=== PATIENT | female | born 1945 | race Caucasian/White ===

== ENCOUNTER 2024-01-19 12:45 | Inpatient (IN) | payer MEDICARE, OTHER ==
[2024-01-20 16:02] VITALS: BMI 28.9
[2024-01-22 12:13] VITALS: BP 132/75; TEMP 97.6
== END 2024-01-22 14:00 | disposition home or self-care (01) | DRG 683 ==
LOC: CSHERS 12:45 → CSHERHOLD 19:34 → CSHTELE 01-20 15:58 → OBSVTOIN 01-21 16:49
PROVIDERS: ADMIT Student in an Organized Health Care Education/Training Program; ATTEND Internal Medicine
DX: N17.9 Acute kidney failure, unspecified (principal); E87.29 Other acidosis; I13.0 Hypertensive heart and chronic kidney disease with heart failure and stage 1 through stage 4 chronic kidney disease, or unspecified chronic kidney disease; N39.0 Urinary tract infection, site not specified; I50.32 Chronic diastolic (congestive) heart failure; I48.91 Unspecified atrial fibrillation; I48.0 Paroxysmal atrial fibrillation; E78.5 Hyperlipidemia, unspecified; E87.5 Hyperkalemia; N18.30 Chronic kidney disease, stage 3 unspecified; E11.22 Type 2 diabetes mellitus with diabetic chronic kidney disease; T44.7X5A Adverse effect of beta-adrenoreceptor antagonists, initial encounter; E86.0 Dehydration; R00.1 Bradycardia, unspecified; Z79.899 Other long term (current) drug therapy; Z79.891 Long term (current) use of opiate analgesic; Z90.49 Acquired absence of other specified parts of digestive tract; Z87.891 Personal history of nicotine dependence
CPT/HCPCS: 36415; 36416; 71045; 74177; 80048; 80053; 81001; 82306; 82550; 83036; 83735; 83880; 83970; 84443; 84484; 85025; 87086; 93005; 93306; 94640; 94760; 96374; 96375; G0378; J0612; J0696; J1815; J1940; J3490; J7030; J7120; J7611; J7999; Q9967

== ENCOUNTER 2024-06-30 08:33 | Emergency (ER) | payer MEDICARE, OTHER ==
[2024-06-30] MEDS ORDERED: Ibuprofen 200 MG TAB ONE (09:01)
[2024-06-30] MEDS ORDERED: Methocarbamol 500 MG TAB ONE (09:01)
[2024-06-30] MEDS ORDERED: Lidocaine 4% Patch ONE (09:01)
== END 2024-06-30 09:21 | disposition home or self-care (01) ==
LOC: CSHERS 08:33
DX: S13.9XXA Sprain of joints and ligaments of unspecified parts of neck, initial encounter (principal); M62.838 Other muscle spasm; I11.0 Hypertensive heart disease with heart failure; I50.9 Heart failure, unspecified; E11.9 Type 2 diabetes mellitus without complications; Z87.891 Personal history of nicotine dependence; X58.XXXA Exposure to other specified factors, initial encounter
CPT/HCPCS: 99283